=== PATIENT | female | born 2000 | race Caucasian/White ===

== ENCOUNTER 2019-07-25 07:49 | Emergency (ER) | payer OTHER ==
[~2019-07-25] VITALS: Ht 165.1 cm; Wt 52.5 kg
[2019-07-25 07:49] VITALS: BP 119/61
[~2019-07-25 07:49] MED LIST: TYLENOL #3 ELIXIR
[2019-07-25] MEDS ORDERED: MIRE1IUD IU (08:01)
[2019-07-25] MEDS ORDERED: ADACEL/BOOSTRIX VACCINE (DIPHTH/PERTUSS/ACELL/TETANUS)0.5ML SYR (90715) IM ONE (08:30)
== END 2019-07-25 08:41 | disposition home or self-care (01) ==
LOC: M ED 07:49
DX: S60.372A Other superficial bite of left thumb, initial encounter (principal); W55.01XA Bitten by cat, initial encounter; Y92.59 Other trade areas as the place of occurrence of the external cause; Y93.89 Activity, other specified; Y99.0 Civilian activity done for income or pay; Z79.3 Long term (current) use of hormonal contraceptives

== ENCOUNTER 2020-05-17 06:54 | Emergency (ER) | payer OTHER ==
[~2020-05-17] VITALS: Ht 165.1 cm; Wt 55.5 kg
[~2020-05-17 06:54] MED LIST changes: +MIRE1IUD IU
[2020-05-17] MEDS ORDERED: NS 1,000 ML IV SCH (07:29)
[2020-05-17] MEDS ORDERED: MORPHINE 2 MG/ML 1ML VIAL (J2270) IV PRN (07:30)
[2020-05-17] MEDS ORDERED: ONDANSETRON 4MG/2ML VIAL IV ONE (07:30)
[2020-05-17 08:01] LABS: BASO % 0.3 % (0.0-1.0); EOS # 0.1 10^3/uL (0.0-0.5); HEMATOCRIT 41.3 % (36.0-47.0); HEMOGLOBIN 13.8 g/dl (12.0-15.5); LYMPH # 1.3 10^3/uL (1.5-5.0); LYMPH % 13.2 % (24.0-44.0); MEAN CORPUSCULAR HEMOGLOBIN 30.7 pg (27.0-33.0); MEAN CORPUSCULAR HGB CONC 33.4 g/dl (32.0-36.5); MEAN CORPUSCULAR VOLUME 91.8 fl (80.0-96.0); MONO # 0.6 10^3/uL (0.0-0.8); MONO % 6.3 % (0.0-5.0); NEUTROPHILS # 7.5 10^3/uL (1.5-8.5); NEUTROPHILS % 78.8 % (36.0-66.0); PLATELET COUNT, AUTOMATED 237 10^3/uL (150-450); WHITE BLOOD COUNT 9.6 10^3/uL (4.0-10.0)
[2020-05-17] MEDS ORDERED: KETOROLAC 30 MG/ML 1ML VIAL IV ONE (08:15)
[2020-05-17 08:19] LABS: ALBUMIN 3.8 GM/DL (3.2-5.2); BILIRUBIN,DIRECT 0.1 MG/DL (0.0-0.2); BILIRUBIN,TOTAL 0.4 MG/DL (0.2-1.0); TOTAL PROTEIN 7.2 GM/DL (6.4-8.2)
[2020-05-17 09:50] VITALS: BP 100/58
--- NOTE | 2020-05-17 09:50 | REPVR ---
PROCEDURE INFORMATION: Exam: CT Abdomen And Pelvis Without Contrast Exam date and time: 05/17/2020 8:49 AM Age: 19 years old Clinical indication: Other: Hematuria; Abdominal pain; Additional info: Hematuria/rlq pain TECHNIQUE: Imaging protocol: Computed tomography of the abdomen and pelvis without contrast. Radiation optimization: All CT scans at this facility use at least one of these dose optimization techniques: automated exposure control; mA and/or kV adjustment per patient size (includes targeted exams where dose is matched to clinical indication); or iterative reconstruction. COMPARISON: CT ABD PELVIS WITH CONTRAST 06/08/2014 1:10 PM FINDINGS: Lungs: Lung bases are clear. No consolidation. Liver: Unremarkable. No mass. Gallbladder and bile ducts: No calcified gallstones. No ductal dilatation. Pancreas: Unremarkable. No ductal dilatation. Spleen: Unremarkable. No splenomegaly. Adrenals: Unremarkable. No mass. Kidneys and ureters: Kidneys demonstrate no evidence of hydronephrosis or nephrolithiasis. Neither ureter is dilated. No ureteral calculi. Stomach and bowel: No evidence of bowel obstruction or significant bowel wall thickening. Moderate amount of colonic fecal material. Appendix: Retrocecal appendix. No evidence of appendicitis. Intraperitoneal space: Trace free fluid within the pelvis/right lower quadrant. No free air. Vasculature: Unremarkable. No abdominal aortic aneurysm. Lymph nodes: No significant adenopathy. Urinary bladder: Unremarkable as visualized. Reproductive: Uterus is tilted towards the right. IUD in place. Bilateral ovarian follicles. Bones/joints: Unremarkable. No acute fracture. Soft tissues: Unremarkable. IMPRESSION: 1. No evidence of hydronephrosis, nephrolithiasis or obstructive uropathy. 2. Trace free fluid within the pelvis/right lower quadrant. Electronically signed by: Armando Jimenez On 05/17/2020 09:50:05 AM
[2020-05-17] MEDS ORDERED: MACR100C43 PO (10:06)
[2020-05-17] MEDS ORDERED: DIFL150T PO (10:11)
[2020-05-17] MEDS ORDERED: NITROFURANTOIN (MACROBID) 100 MG CAP PO ONE (10:15)
== END 2020-05-17 10:27 | disposition home or self-care (01) ==
LOC: M ED 06:54
DX: N39.0 Urinary tract infection, site not specified (principal); N80.9 Endometriosis, unspecified; Z97.5 Presence of (intrauterine) contraceptive device; Z88.8 Allergy status to other drugs, medicaments and biological substances
CPT/HCPCS: 74176; 76830; 76856; 80047; 80076; 81001; 83690; 84702; 85025; 87088; 87186; 93976; 96361; 96374; 96375; 99284; J1885; J2270; J2405

== ENCOUNTER → 2020-12-10 | Outpatient (REF) | payer MEDICAID, OTHER ==
[~2020-12-10] MED LIST changes: +DIFL150T PO; +MACR100C43 PO
== END ==
LOC: M SFHCWAGY 13:42
PROVIDERS: ATTEND Specialist
DX: Z01.419 Encounter for gynecological examination (general) (routine) without abnormal findings (principal); R87.620 Atypical squamous cells of undetermined significance on cytologic smear of vagina (ASC-US)

== ENCOUNTER → 2022-03-28 | Outpatient (CLI) | payer OTHER, MEDICAID ==
[2022-03-28 14:11] LABS: BASO % 0.5 % (0.0-1.0); EOS # 0.1 10^3/uL (0.0-0.5); EOS % 0.6 % (0.0-3.0); HEMATOCRIT 39.1 % (36.0-47.0); LYMPH # 1.3 10^3/uL (1.5-5.0); LYMPH % 16.6 % (24.0-44.0); MEAN CORPUSCULAR HEMOGLOBIN 30.1 pg (27.0-33.0); MEAN CORPUSCULAR HGB CONC 33.2 g/dl (32.0-36.5); MEAN CORPUSCULAR VOLUME 90.5 fl (80.0-96.0); MONO # 0.4 10^3/uL (0.0-0.8); MONO % 5.5 % (2.0-8.0); NEUTROPHILS # 6.1 10^3/uL (1.5-8.5); NEUTROPHILS % 76.4 % (36.0-66.0); PLATELET COUNT, AUTOMATED 244 10^3/uL (150-450); RED BLOOD COUNT 4.32 10^6/uL (4.00-5.40)
[2022-03-28 15:58] LABS: GC DNA AMPLIFICATION NEGATIVE (NEGATIVE)
[2022-03-28 16:51] LABS: HEPATITIS C VIRUS ABY INDEX < 0.0 INDEX (<0.8)
== END ==
LOC: M PLALAB 09:36
PROVIDERS: ATTEND Specialist
DX: Z34.01 Encounter for supervision of normal first pregnancy, first trimester (principal)

== ENCOUNTER 2022-04-22 11:46 | Emergency (ER) | payer MEDICAID, OTHER ==
[~2022-04-22] VITALS: Ht 165.1 cm; Wt 52.6 kg
[2022-04-22] MEDS ORDERED: PREN27TA3 (11:55)
[2022-04-22] MEDS ORDERED: ONDA4TAB6 (11:55)
[2022-04-22 14:16] LABS: BASO % 0.3 % (0.0-1.0); EOS # 0.1 10^3/uL (0.0-0.5); EOS % 0.8 % (0.0-3.0); HEMATOCRIT 38.5 % (36.0-47.0); HEMOGLOBIN 12.9 g/dl (12.0-15.5); LYMPH # 1.4 10^3/uL (1.5-5.0); LYMPH % 15.6 % (24.0-44.0); MEAN CORPUSCULAR HEMOGLOBIN 30.9 pg (27.0-33.0); MEAN CORPUSCULAR HGB CONC 33.5 g/dl (32.0-36.5); MEAN CORPUSCULAR VOLUME 92.3 fl (80.0-96.0); MONO # 0.3 10^3/uL (0.0-0.8); MONO % 3.7 % (2.0-8.0); NEUTROPHILS # 6.8 10^3/uL (1.5-8.5); NEUTROPHILS % 79.3 % (36.0-66.0); PLATELET COUNT, AUTOMATED 237 10^3/uL (150-450); RED BLOOD COUNT 4.17 10^6/uL (4.00-5.40); WHITE BLOOD COUNT 8.6 10^3/uL (4.0-10.0)
[2022-04-22 14:55] LABS: HCG, SERUM QUALITATIVE POSITIVE (NEGATIVE)
[2022-04-22 15:11] LABS: ALBUMIN 3.5 GM/DL (3.2-5.2); ALT/SGPT 12 U/L (12-78); BILIRUBIN,DIRECT 0.1 MG/DL (0.0-0.2); BILIRUBIN,TOTAL 0.3 MG/DL (0.2-1.0); BLOOD UREA NITROGEN 8 MG/DL (7-18); CARBON DIOXIDE LEVEL 26 MEQ/L (21-32); CHLORIDE LEVEL 103 MEQ/L (98-107); CREATININE FOR GFR 0.59 MG/DL (0.55-1.30); GLOMERULAR FILTRATION RATE > 60.0 (>60); GLUCOSE, FASTING 123 MG/DL (70-100); LIPASE 84 U/L (73-393); SODIUM LEVEL 134 MEQ/L (136-145); TOTAL PROTEIN 7.4 GM/DL (6.4-8.2)
[2022-04-22 17:41] LABS: APPEARANCE, URINE MANUAL CLEAR (CLEAR); COLOR, URINE MANUAL YELLOW (YELLOW)
[2022-04-22 17:47] LABS: GLUCOSE, URINE (UA) MANUAL NEGATIVE (NEGATIVE); KETONE, URINE MANUAL NEGATIVE (NEGATIVE); PROTEIN, URINE MANUAL NEGATIVE (NEGATIVE); UROBILINOGEN, URINE MANUAL NORMAL (NORMAL)
[2022-04-22 17:48] LABS: BILIRUBIN, URINE MANUAL NEGATIVE (NEGATIVE); BLOOD URINE MANUAL NEGATIVE (NEGATIVE); LEUKOCYTE ESTERASE, URINE MAN POSITIVE (NEGATIVE); NITRITE, URINE MANUAL NEGATIVE (NEGATIVE)
[2022-04-22 18:01] LABS: BACTERIA, URINE SMALL AMOUNT; HYALINE CAST, URINE NONE SEEN /lpf (0-1); RBC, URINE NONE SEEN /hpf (0-3); SQUAMOUS EPITHELIAL CELL URINE MOD AMOUNT /hpf (SMALL AMT)
[2022-04-22 18:28] VITALS: BP 105/65
== END 2022-04-22 18:29 | disposition home or self-care (01) ==
LOC: M ED 11:46
DX: O99.891 Other specified diseases and conditions complicating pregnancy (principal); R10.2 Pelvic and perineal pain; Z88.8 Allergy status to other drugs, medicaments and biological substances; Z3A.13 13 weeks gestation of pregnancy

== ENCOUNTER → 2022-05-08 | Outpatient (CLI) | payer OTHER ==
[~2022-05-08] MED LIST changes: +ONDA4TAB6; +PREN27TA3
== END ==
LOC: M PLALAB 15:19
PROVIDERS: ATTEND Specialist
DX: Z34.82 Encounter for supervision of other normal pregnancy, second trimester (principal); Z3A.00 Weeks of gestation of pregnancy not specified

== ENCOUNTER → 2022-05-28 | Outpatient (CLI) | payer OTHER | LOC: M WHC 08:01 | PROVIDERS: ATTEND Specialist | DX: Z36.89 Encounter for other specified antenatal screening (principal); Z3A.18 18 weeks gestation of pregnancy ==

== ENCOUNTER → 2022-07-21 | Outpatient (CLI) | payer OTHER ==
[2022-07-21 13:59] LABS: HEMATOCRIT 34.4 % (36.0-47.0); HEMOGLOBIN 11.3 g/dl (12.0-15.5); MEAN CORPUSCULAR HEMOGLOBIN 31.7 pg (27.0-33.0); MEAN CORPUSCULAR HGB CONC 32.8 g/dl (32.0-36.5); MEAN CORPUSCULAR VOLUME 96.4 fl (80.0-96.0); PLATELET COUNT, AUTOMATED 238 10^3/uL (150-450); RED BLOOD COUNT 3.57 10^6/uL (4.00-5.40); WHITE BLOOD COUNT 10.3 10^3/uL (4.0-10.0)
[2022-07-21 19:21] LABS: GC DNA AMPLIFICATION NEGATIVE (NEGATIVE)
== END ==
LOC: M PLALAB 08:22
PROVIDERS: ATTEND Specialist
DX: Z34.02 Encounter for supervision of normal first pregnancy, second trimester (principal)
CPT/HCPCS: 36415; 82950; 85027; 86850; 86900; 86901; 87810; 87850; J2790

== ENCOUNTER → 2022-08-29 | Outpatient (CLI) | payer OTHER | LOC: M RAD 10:04 | PROVIDERS: ATTEND Specialist | DX: O44.00 Complete placenta previa NOS or without hemorrhage, unspecified trimester (principal); Z3A.33 33 weeks gestation of pregnancy ==

== ENCOUNTER → 2022-09-30 | Outpatient (REF) | payer OTHER | LOC: M PLALAB 08:20 | PROVIDERS: ATTEND Specialist | DX: Z34.03 Encounter for supervision of normal first pregnancy, third trimester (principal) ==

== ENCOUNTER 2022-10-24 04:59 | Inpatient (IN) | payer OTHER ==
[2022-10-24] VITALS (25 sets, daily range): BP systolic 105–155; BP diastolic 64–90
[~2022-10-24] VITALS: Ht 165.1 cm; Wt 68.3 kg
[2022-10-24] MEDS ORDERED: TUMS500C PO (05:20)
[2022-10-24] MEDS ORDERED: HOME MED LIST COMPLETE! XX SCH (05:25)
[2022-10-24] MEDS ORDERED: LIDOCAINE 1% MDV 20ML VIAL INFIL PRN (05:50)
[2022-10-24] MEDS ORDERED: METHYLERGONOVINE MALEATE 0.2MG/ML 1ML VIAL IM PRN (05:50)
[2022-10-24] MEDS ORDERED: TRANEXAMIC ACID INJection 1,000 MG in NS 100 ML IV PRN (05:50)
[2022-10-24] MEDS ORDERED: OXYTOCIN DRIP 30 UNITS in IV 1 EA IV PRN (05:50)
[2022-10-24] MEDS: LR 1,000 ML IV SCH ×2 (06:04→18:04)
[2022-10-24] MEDS ORDERED: PROMETHAZINE 25MG/ML 1ML VIAL IV ONE (06:10)
[2022-10-24] MEDS ORDERED: BUTORPHANOL 2 MG/ML 1ML VIAL IV ONE (06:10)
[2022-10-24 06:21] LABS: HEMATOCRIT 32.4 % (36.0-47.0); HEMOGLOBIN 10.2 g/dl (12.0-15.5); MEAN CORPUSCULAR HEMOGLOBIN 25.6 pg (27.0-33.0); MEAN CORPUSCULAR HGB CONC 31.5 g/dl (32.0-36.5); MEAN CORPUSCULAR VOLUME 81.4 fl (80.0-96.0); PLATELET COUNT, AUTOMATED 236 10^3/uL (150-450); RED BLOOD COUNT 3.98 10^6/uL (4.00-5.40); WHITE BLOOD COUNT 10.8 10^3/uL (4.0-10.0)
[2022-10-24] MEDS ORDERED: NALOXONE INJ 0.4MG/1ML VIAL IV PRN (09:10)
[2022-10-24] MEDS ORDERED: ePHEDrine SULFATE 25 MG/5 ML(5MG/ML) SYRINGE IVP PRN (09:10)
[2022-10-24] MEDS ORDERED: ONDANSETRON 4MG 2ML VIAL IV PRN ×2 (09:10→19:35)
[2022-10-24] MEDS ORDERED: LR 500 ML IV PRN (09:10)
[2022-10-24] MEDS ORDERED: EPIDURAL/PCA KEYS XX PRN (09:10)
[2022-10-24] MEDS ORDERED: diphenhydrAMINE 50MG/ML VIAL IV PRN (09:10)
[2022-10-24] MEDS: FENTANYL/ROPIVACAINE/NACL BAG 100 ML EPIDURAL SCH ×2 (09:59→18:05)
[2022-10-24] MEDS ORDERED: DOCUSATE SODIUM 100MG CAPSULE PO PRN (19:35)
[2022-10-24] MEDS ORDERED: ACETAMINOPHEN 500 MG TAB PO PRN (19:35)
[2022-10-24] MEDS ORDERED: DIBUCAINE 1% OINTMENT 30GM TOP PRN (19:35)
[2022-10-24] MEDS ORDERED: METHYLERGONOVINE MALEATE 0.2 MG TAB PO PRN (19:35)
[2022-10-24] MEDS ORDERED: RHOGAM 300MCG (1500IU) INJ IM SCH (19:35)
[2022-10-24] MEDS ORDERED: IBUPROFEN 600MG TAB PO PRN (19:35)
[2022-10-24] MEDS ORDERED: ANUSOL HC CREAM 30GM TOP PRN (19:35)
[2022-10-25 05:51] VITALS: BP 103/62
[2022-10-25] MEDS: PRENATAL VITAMINS CHEWABLE TABLET PO SCH (09:18)
[2022-10-25 18:00] VITALS: BP 111/72
[2022-10-26 06:00] VITALS: BP 110/64
[2022-10-26] MEDS: PRENATAL VITAMINS CHEWABLE TABLET PO SCH (08:59)
[2022-10-26] MEDS ORDERED: MEASLES,MUMPS,RUBELLA VACCINE INJ (MMR-II) SC.IMMUN ONE (09:00)
== END 2022-10-26 11:05 | disposition home or self-care (01) | DRG 560 ==
LOC: M LDO 04:59 → M LDI 05:31 → M OBS 21:15
PROVIDERS: ADMIT Obstetrics & Gynecology; ATTEND Advanced Practice Midwife
PROC: 10E0XZZ Delivery of Products of Conception, External Approach (ICD-10-PCS; principal; 2022-10-24)
PROC: 10907ZC Drainage of Amniotic Fluid, Therapeutic from Products of Conception, Via Natural or Artificial Opening (ICD-10-PCS; 2022-10-24)
PROC: 0HQ9XZZ Repair Perineum Skin, External Approach (ICD-10-PCS; 2022-10-24)
DX: O32.6XX0 Maternal care for compound presentation, not applicable or unspecified (principal); Z3A.39 39 weeks gestation of pregnancy; O70.0 First degree perineal laceration during delivery; Z37.0 Single live birth

== ENCOUNTER → 2023-03-17 | Outpatient (REF) | payer OTHER ==
[~2023-03-17] MED LIST changes: +TUMS500C PO
== END ==
LOC: M PLALAB 14:41
PROVIDERS: ATTEND Advanced Practice Midwife
DX: Z12.4 Encounter for screening for malignant neoplasm of cervix (principal)

== ENCOUNTER → 2023-07-30 | Outpatient (CLI) | payer OTHER ==
[2023-07-30 14:46] LABS: HCG, SERUM QUALITATIVE NEGATIVE (NEGATIVE)
== END ==
LOC: M PLALAB 09:58
PROVIDERS: ATTEND Advanced Practice Midwife
DX: N93.9 Abnormal uterine and vaginal bleeding, unspecified (principal)

== ENCOUNTER → 2023-12-23 | Outpatient (CLI) | payer OTHER ==
[2023-12-23 17:57] LABS: BASO # 0.1 10^3/uL (0.0-0.2); EOS # 0.2 10^3/uL (0.0-0.5); EOS % 1.9 % (0.0-3.0); HEMATOCRIT 42.1 % (36.0-47.0); HEMOGLOBIN 13.9 g/dl (12.0-15.5); LYMPH # 1.8 10^3/uL (1.5-5.0); LYMPH % 22.8 % (24.0-44.0); MEAN CORPUSCULAR HEMOGLOBIN 30.2 pg (27.0-33.0); MEAN CORPUSCULAR VOLUME 91.3 fl (80.0-96.0); MONO # 0.5 10^3/uL (0.0-0.8); MONO % 6.5 % (2.0-8.0); NEUTROPHILS # 5.4 10^3/uL (1.5-8.5); NEUTROPHILS % 67.7 % (36.0-66.0); PLATELET COUNT, AUTOMATED 237 10^3/uL (150-450); RED BLOOD COUNT 4.61 10^6/uL (4.00-5.40)
[2023-12-23 18:08] LABS: HEMOGLOBIN A1c 4.7 % (4.0-6.0)
[2023-12-23 18:23] LABS: ALKALINE PHOSPHATASE 110 U/L (46-116); ALT/SGPT 12 U/L (7.0-40); AST/SGOT 11 U/L (<34); BILIRUBIN,TOTAL 0.5 MG/DL (0.3-1.2); BLOOD UREA NITROGEN 12 MG/DL (9-23); CALCIUM LEVEL 9.2 MG/DL (8.5-10.1); CARBON DIOXIDE LEVEL 29 MMOL/L (20-31); CHLORIDE LEVEL 103 MMOL/L (98-107); CHOLESTEROL LEVEL 140 MG/DL (<200); GLOMERULAR FILTRATION RATE > 60.0 (>60); GLUCOSE, FASTING 82 MG/DL (60-100); HDL CHOLESTEROL 66.6 MG/DL (>40); LDL CHOLESTEROL 58.4 MG/DL (<100); MAGNESIUM LEVEL 2.2 MG/DL (1.8-2.4); NON-HDL-C 73.4 MG/DL; POTASSIUM SERUM 4.2 MMOL/L (3.5-5.1); SODIUM LEVEL 139 MMOL/L (136-145); TOTAL PROTEIN 7.1 G/DL (5.7-8.2); TRIGLYCERIDES LEVEL 75 MG/DL (<150)
[2023-12-23 18:26] LABS: FREE T4 1.11 NG/DL (0.89-1.76)
[2023-12-23 18:27] LABS: TOTAL 25(OH) VITAMIN D 24.5 NG/ML (20.0-100.0)
== END ==
LOC: M EKG 15:23
PROVIDERS: ATTEND Nurse Practitioner Family
DX: R00.2 Palpitations (principal); E55.9 Vitamin D deficiency, unspecified; Z13.1 Encounter for screening for diabetes mellitus; Z13.220 Encounter for screening for lipoid disorders

== ENCOUNTER → 2024-02-10 | Outpatient (CLI) | payer OTHER ==
[~2024-02-10] MED LIST changes: +ONDA-282; -ONDA4TAB6
[2024-02-10 13:27] LABS: PROGESTERONE 10.58 NG/ML
[2024-02-10 13:28] LABS: FOLLICLE STIMULATING HORMONE 5.9 mIU/ML; LUTEINIZING HORMONE 7.1 mIU/ML; PROLACTIN 3.86 NG/ML
== END ==
LOC: M PLALAB 11:00
PROVIDERS: ATTEND Specialist
DX: N92.6 Irregular menstruation, unspecified (principal)

== ENCOUNTER → 2024-05-10 | Outpatient (REF) | payer OTHER | LOC: M LAB REF 15:24 | PROVIDERS: ATTEND Nurse Practitioner Family | DX: J35.8 Other chronic diseases of tonsils and adenoids (principal) ==

== ENCOUNTER → 2024-07-26 | Outpatient (CLI) | payer OTHER ==
[~2024-07-26] MED LIST changes: +ISOVUE-370 76% 100ML VIAL ONE
== END ==
LOC: M RADPRO 11:17
PROVIDERS: ATTEND Specialist
DX: N97.9 Female infertility, unspecified (principal)

== ENCOUNTER 2024-08-08 10:32 | Day surgery (SDC) | payer OTHER ==
[~2024-08-08] VITALS: Ht 165.1 cm; Wt 53.4 kg
[~2024-08-08 10:32] MED LIST changes: +CLOM50TA28 PO; -ISOVUE-370 76% 100ML VIAL ONE; +VITA200032 PO
[2024-08-08] MEDS ORDERED: ONDANSETRON 4MG 2ML VIAL As Ordered ONE (10:59)
[2024-08-08] MEDS ORDERED: LIDOCAINE 2% 100MG/5ML SDV (FOR ANES.) As Ordered ONE (10:59)
[2024-08-08] MEDS ORDERED: SUGAMMADEX SODIUM 500 MG/5 ML VIAL (BRIDION) As Ordered ONE (10:59)
[2024-08-08] MEDS ORDERED: ACETAMINOPHEN 1000MG/100ML IV BAG As Ordered ONE (10:59)
[2024-08-08] MEDS ORDERED: KETOROLAC 60MG 2ML VIAL As Ordered ONE (10:59)
[2024-08-08] MEDS ORDERED: ROCURONIUM BROMIDE 50MG/5ML VIAL As Ordered ONE (10:59)
[2024-08-08] MEDS ORDERED: propofoL 200 MG/20 ML VIAL As Ordered ONE (10:59)
[2024-08-08] MEDS ORDERED: fentaNYL 100 MCG/2 ML INJECTION As Ordered ONE (11:03)
[2024-08-08] MEDS ORDERED: MIDAZOLAM INJ 2MG/2ML VIAL As Ordered ONE (11:04)
[2024-08-08] MEDS: SCOPOLAMINE 1MG TRANSDERMAL PATCH TOP STA (11:30)
[2024-08-08] MEDS ORDERED: NS (Normal Saline) 0.9% 1,000 ML IV SCH (11:30)
[2024-08-08] MEDS: METHYLENE BLUE 0.5% (5MG/ML) 10 ML AMP (PROVAYBLUE) As Ordered ONE (12:30)
[2024-08-08] MEDS ORDERED: NS 250 ML IV SCH (13:40)
[2024-08-08] MEDS ORDERED: fentaNYL 100 MCG/2 ML INJECTION IV PRN (13:40)
[2024-08-08] MEDS ORDERED: IBUP-1022 PO (13:41)
[2024-08-08] MEDS ORDERED: OXYC1TAB23 PO (13:42)
[2024-08-08] MEDS: HYDROMORPHONE HCL 0.5 MG/ 0.5 ML SYRINGE IV PRN (13:52)
[2024-08-08] MEDS: oxyCODONE 5MG TAB PO PRN (14:02)
[2024-08-08] MEDS: ONDANSETRON 4MG 2ML VIAL IV PRN (14:30)
[2024-08-08 16:05] VITALS: BP 94/52; TEMP 97; O2SAT 100
== END 2024-08-08 16:15 | disposition home or self-care (01) ==
LOC: M SDC 10:32
PROVIDERS: ATTEND Specialist
DX: N97.1 Female infertility of tubal origin (principal); N83.291 Other ovarian cyst, right side; N73.6 Female pelvic peritoneal adhesions (postinfective); R10.2 Pelvic and perineal pain; N80.9 Endometriosis, unspecified; Z91.040 Latex allergy status; Z88.8 Allergy status to other drugs, medicaments and biological substances; Z79.899 Other long term (current) drug therapy
CPT/HCPCS: 58662; 58673; 81025; 88305; J0131; J0665; J1100; J1171; J1885; J2250; J2405; J3010; Q9968